=== PATIENT | male | born 1980 | race Caucasian/White ===

== ENCOUNTER 2020-06-24 09:24 | Day surgery (SDC) | payer OTHER ==
--- NOTE | 2020-06-24 08:39 | HP ---
DATE OF SURGERY: 06/24/2020 HISTORY OF PRESENT ILLNESS: The patient is a 40 year old with bulge mid abdomen, moving his bowels okay. He denied any prior surgery. PAST MEDICAL HISTORY: He denies any chronic illnesses. PAST SURGICAL HISTORY: None. MEDICATIONS: None. ALLERGIES: NKDA. FAMILY HISTORY: Cancer. SOCIAL HISTORY: He denied smoking, reports occasional alcohol use denies abuse. REVIEW OF SYSTEMS: Fourteen systems reviewed. No chest pain or palpitations. Other systems negative or noncontributory as above and per preadmission questionnaire. PHYSICAL EXAMINATION: GENERAL: No acute distress. HEENT: Sclerae nonicteric. NECK: No JVD. CHEST: Clear to auscultation. CVS: Regular rate and rhythm. ABDOMEN: Soft. He has ventral hernia likely with some incarcerated preperitoneal fat or omentum in the mid abdomen. EXTREMITIES: No significant edema. NEURO: Alert, oriented, moving extremities symmetrically. No gross motor deficits noted. PSYCH: Appropriate mood and affect. IMPRESSION: Incarcerated ventral hernia umbilical area. I feel the patient will benefit from hernia repair with mesh. Risks and benefits explained in detail including but not limited to bleeding or infection, risk of bowel injury or perforation, possibly requiring further procedure, risk of hernia recurrence possibly requiring other procedures, risk of mesh infection possibly requiring removal, risk of hematoma or seromal formation, general risk of anesthesia, deep venous thrombosis, pulmonary embolism, pneumonia, remote risk of mesh fracture or failure possibly creating issues with viscera or other structures possibly requiring other procedures, risk of bleeding, scar formation or obstruction down the road as well as risk of hernia recurrence but not limited to. Risk of aches, pain, burning or numbness possibly buttermaker or chronic in nature. He understands all of the above but not limited to, will proceed with open repair of incarcerated ventral hernia with mesh as an outpatient.
[~2020-06-24 09:24] MED LIST: Lactated Ringers 1,000 ML IV ONE; Sensorcaine 0.25% 10 ML ONE
[2020-06-24] MEDS ORDERED: Lactated Ringers 1,000 ML IV SCH (09:30)
[2020-06-24] MEDS ORDERED: CEFAZOLIN 2 GM-D5W BAG** 2 GM/50 ML ML IV SCH (10:00)
[2020-06-24] MEDS ORDERED: SUBLIMAZE 100 MCG/2 ML ONE ×2 (10:31→12:43)
[2020-06-24] MEDS ORDERED: DIPRIVAN 200 MG/20 ML IV ONE (10:31)
[2020-06-24] MEDS ORDERED: Decadron 4 MG INJ ONE (10:31)
[2020-06-24] MEDS ORDERED: Zemuron 100 MG/10 ML ONE (10:31)
[2020-06-24] MEDS ORDERED: Xylocaine-Mpf 2% 5 Ml Vial ONE (10:31)
[2020-06-24] MEDS ORDERED: Zofran 4 MG/2 ML VIAL ONE (10:31)
[2020-06-24] MEDS ORDERED: TORAdol 30 mg Injection ONE (10:31)
[2020-06-24] MEDS ORDERED: BRIDION 200MG/2ML IV ONE (10:31)
[2020-06-24 13:35] VITALS: O2SAT 96
[2020-06-24 13:43] VITALS: BP 122/80; PULSE 69
--- NOTE | 2020-06-25 08:47 | OP ---
SURGERY DATE/TIME: 06/24/2020 1134 PREOPERATIVE DIAGNOSIS: Question of incarcerated umbilical hernia. POSTOPERATIVE DIAGNOSES: Incarcerated ventral hernia (epigastric) along with incarcerated umbilical hernia repaired en bloc with one piece of mesh of incarcerated ventral hernia with mesh in open fashion. PROCEDURE: Repair of incarcerated umbilical hernia with mesh. SURGEON: Dr. Eusebio Ingram. ANESTHESIA: General. ESTIMATED BLOOD LOSS: Minimal. INDICATIONS: As noted above. Risks and benefits explained in detail and not limited to and consent obtained. The procedure is explained in detail but not limited to and consent was obtained. The site had been confirmed with the patient in the preoperative holding area. DESCRIPTION OF PROCEDURE AND FINDINGS: The patient is taken to the operating room. General anesthesia induced. Abdomen prepped and draped in usual sterile fashion. After official time out and no disagreement with planned procedure, a transverse incision made supraumbilical area. Dissection carried down circumferentially around incarcerated ventral hernia. He had more than one hernia. He had a smaller umbilical component. He did have a fascial bridge and lower epigastric ventral hernia. In order to reduce the incarcerated preperitoneal fat, it was necessary to divide this bridge creating one ventral hernia rather than two separate ventral hernias. It was felt that this should be repaired en bloc as a single hernia. Where this fascial bridge was taken down repairing the epigastric ventral hernia and umbilical hernia incarcerated hernia as one hernia. It took some time but this incarcerated content was reduced back down in the abdomen. The fascia is cleared circumferentially around the rectorectus fascial area. It was felt most appropriate size mesh is a size [address] mesh this is carefully inserted making sure it is flat in all directions and secured 1 cm apart with interrupted 0 Prolene in a tension-free manner. The attenuated fascia was then closed over the top of the mesh isolating away from the rest of the wound with interrupted 0 PDS as a second layer. Good hemostasis noted. 0.25% Marcaine local injected along the fascial and skin incision area. The tissue was then packed back down to the fascia with 3-0 Vicryl. Good hemostasis noted. Superficial subcu closed with 3-0 Vicryl. Skin closed with 4-0 Vicryl. Steri-Strips and sterile dressing applied. The patient was given abdominal compression dressing and abdominal binder after anesthesia did tap blocks. I tried calling his on the phone but did not answer. I left a message. If she returns and has questions I could be paged otherwise will see him back in the office next week.
== END 2020-06-24 13:50 | disposition home or self-care (01) ==
LOC: SDC 09:24
PROVIDERS: ATTEND Surgery
DX: K42.0 Umbilical hernia with obstruction, without gangrene (principal); K43.9 Ventral hernia without obstruction or gangrene
CPT/HCPCS: 49587; C1781; J0690; J1100; J1885; J2405; J2704; J3010; L0625

== ENCOUNTER 2025-06-06 06:31 | Day surgery (SDC) | payer OTHER ==
[~2025-06-06 06:31] MED LIST changes: -Sensorcaine 0.25% 10 ML ONE
[2025-06-06] MEDS: Lactated Ringers 1,000 ML IV SCH (06:45)
[2025-06-06] MEDS ORDERED: Xylocaine-Mpf 2% 5 Ml Vial ONE (08:24)
[2025-06-06] MEDS ORDERED: propofoL IV ONE ×3 (08:24→08:50)
[2025-06-06] MEDS ORDERED: Ephedrine Sulfate 50 MG/ML ONE (08:43)
[2025-06-06] MEDS ORDERED: Lactated Ringers 1,000 ML IV ONE (09:09)
[2025-06-06 09:30] VITALS: RESP 16
[2025-06-06 09:36] VITALS: PULSE 74; TEMP 97.2; O2SAT 99
[2025-06-06 09:41] VITALS: BP 118/75
--- NOTE | 2025-06-07 10:39 | OP ---
SURGERY DATE/TIME: 06/06/2025 [id number] PREOPERATIVE DIAGNOSIS: Screening colonoscopy. POSTOPERATIVE DIAGNOSIS: Sigmoid colon polyps x2. PROCEDURE PERFORMED: Colonoscopy. SURGEON: Milan Teran MD ANESTHESIA: MAC by Ozzy Thorpe CRNA. ESTIMATED BLOOD LOSS: Minimal. SPECIMENS: There were 2 hot forceps polypectomies from the sigmoid colon at the 25 cm scope depth sent in the same specimen container. DESCRIPTION OF PROCEDURE AND FINDINGS: After informed written consent was obtained, the patient was taken to the endoscopy suite. He was placed in the left lateral decubitus position and anesthesia was titrated to the desired level of consciousness. Digital rectal exam showed normal sphincter tone and no internal lesions. The scope was inserted in the rectum, and sequentially the entire colonic mucosa was traversed. The level of the cecum was reached and verified with direct visualization of the ileocecal valve. Upon withdrawal, there were no mucosal abnormalities until the sigmoid colon was reached. At the 25 cm scope depth, there were 2 polyps very near proximity to each other, which were both grasped with the forceps, cauterized, and removed in piecemeal fashion, sent in the same specimen container. Area was hemostatic and the entire lesion appeared to be removed with both lesions. The remainder of the exam was unremarkable. Retroflexion showed no internal lesions. Scope was removed and the patient was sent to the recovery room in good condition. He will follow up in 1 week for pathology results and followup recommendation.
== END 2025-06-06 09:45 | disposition home or self-care (01) ==
LOC: SDC 06:31
PROVIDERS: ATTEND Family Medicine
DX: Z12.11 Encounter for screening for malignant neoplasm of colon (principal); D12.5 Benign neoplasm of sigmoid colon